=== PATIENT | female | born 1990 | race Two or more races ===

== ENCOUNTER 2018-02-16 02:17 | Emergency (ER) | payer SELFPAY ==
[~2018-02-16] VITALS: Ht 154.9 cm; Wt 81.2 kg
--- NOTE | 2018-02-16 02:34 | Emergency Room Report ---
History of Present Illness General Chief Complaint: Headache Source: Patient Present Illness HPI Is a 27-year-old female with no past medical history. She presents with chief point of neck pain and headache. Onset was about 2 hours ago. She was getting out of bed and felt pain in the back of her head. Radiate upward. Now felt stiff and burning sensation in that area. No nausea no vomiting. Pain is 7 out of 10. Denies any fever or chills. Denies any trauma. Usually do not get headache. No family history of subarachnoid bleed. No cough or congestion. Allergies: Coded Allergies: No Known Allergies (Unverified , 02/16/18) Patient History Past Medical History: none, see triage record, old chart reviewed Past Surgical History: none Pertinent Family History: none Social History: Denies: smoking Last Menstrual Period: Ended 2 days Now: No Immunizations: other Reviewed Nursing Documentation: PMH: Agreed; PSxH: Agreed Nursing Documentation-PMH Past Medical History: No Stated History Review of Systems Eye: Denies: eye pain, blurred vision ENT: Denies: ear pain, nose congestion, throat swelling Respiratory: Denies: cough, shortness of breath Cardiovascular: Denies: chest pain, palpitations Gastrointestinal: Denies: abdominal pain, diarrhea, nausea, vomiting Musculoskeletal: Denies: back pain, joint pain Skin: Denies: rash Neurological: Reports: headache; Denies: numbness Endocrine: Denies: increased thirst, increased urine Hematologic/Lymphatic: Denies: easy bruising All Other Systems: negative except mentioned in HPI Physical Exam Vital Signs Date Time Temp Pulse Resp B/P (MAP) Pulse Ox O2 Delivery O2 Flow Rate FiO2 02/16/18 02:22 98.1 111 20 160/92 96 Room Air 98.1 vitals with tachycardia and high blood pressure Sp02 EP Interpretation: reviewed, normal General Appearance: well appearing, no apparent distress, alert Head: normocephalic, atraumatic Eyes: bilateral eye PERRL, bilateral eye EOMI, bilateral eye other - funduscopic exam show sharp disc bilaterall ENT: hearing grossly normal, normal pharynx Neck: full range of motion, supple, no meningismus Respiratory: chest non-tender, lungs clear, normal breath sounds Cardiovascular #1: regular rate, rhythm, no murmur Gastrointestinal: normal bowel sounds, non tender, no mass, no organomegaly, no bruit, non-distended Musculoskeletal: back normal, gait/station normal, normal range of motion Psychiatric: mood/affect normal Skin: warm/dry Medical Decision Making Diagnostic Impression: Primary Impression: Headache Qualified Codes: R51 - Headache ER Course She presents with headache. She felt better now. No evidence of bleed or meningitis. No evidence of neoplastic process. I discussed the need for lumbar puncture to rule out subarachnoid bleed even though is negative. Said she felt better she how she does outpatient. If she continues to have pain will come back for lumbar puncture. She is otherwise stable. CT/MRI/US Diagnostic Results CT/MRI/US Diagnostic Results : Imaging Test Ordered: CT head Impression negative per radiologist Last Vital Signs Date Time Temp Pulse Resp B/P (MAP) Pulse Ox O2 Delivery O2 Flow Rate FiO2 02/16/18 02:22 98.1 111 20 160/92 96 Room Air 98.1 Status: improved Disposition: HOME, SELF-CARE Condition: Stable Scripts Ibuprofen* (MOTRIN*) 600 Mg Tablet 600 MG ORAL THREE TIMES A DAY, #30 TAB 0 Refills Prov: KAREN LINARES M.D. 02/16/18 Patient Instructions: General Headache Without Cause Additional Instructions: Follow-up with your DrNorris in one to 2 days if not better. Return if symptom doesn 't improve or worsen. KAREN LINARES M.D. Feb 16, 2018 02:34
[2018-02-16] MEDS ORDERED: Metoclopramide 10mg/2ml Inj IVP ONE (02:45)
[2018-02-16] MEDS ORDERED: Ketorolac 30mg Inj IV ONE (02:45)
[2018-02-16] MEDS ORDERED: DiphenhydrAMINE 50mg/ml Inj IVP ONE (02:45)
[2018-02-16 02:55] LABS: APPEARANCE,URINE CLEAR; BILIRUBIN, URINE NEGATIVE (NEGATIVE); COLOR,URINE PALE YELLOW; GLUCOSE, URINE (UA) NEGATIVE (NEGATIVE); KETONES,URINE 1+ (NEGATIVE); LEUKOCYTE ESTERASE ,URINE NEGATIVE (NEGATIVE); NITRITE,URINE NEGATIVE (NEGATIVE); PH,URINE 6 (4.5-8.0); PROTEIN,URINE 2+ (NEGATIVE); UROBILINOGEN,URINE NORMAL MG/DL (0.0-1.0)
[2018-02-16 02:56] LABS: ANION GAP 8 mmol/L (5-15); BLOOD UREA NITROGEN 19 mg/dL (7-18); CALCIUM 9.7 MG/DL (8.5-10.1); CARBON DIOXIDE 24 MMOL/L (21-32); CHLORIDE 100 MMOL/L (98-107); CREATININE 0.8 MG/DL (0.55-1.30); POTASSIUM 3.9 MMOL/L (3.5-5.1); SODIUM 132 MMOL/L (136-145)
[2018-02-16 03:00] LABS: BASOPHILS % (AUTO) 1.6 % (0.0-2.0); EOSINOPHILS % (AUTO) 1.4 % (0.0-3.0); HEMATOCRIT 44.6 % (37.0-47.0); LYMPHOCYTES % (AUTO) 50.7 % (20.0-45.0); MEAN CORPUSCULAR VOLUME 94 FL (80-99); MONOCYTES % (AUTO) 6.3 % (1.0-10.0); PLATELET COUNT 369 K/UL (150-450); RED BLOOD COUNT 4.74 M/UL (4.20-5.40); RED CELL DISTRIBUTION WIDTH 12.8 % (11.6-14.8); WHITE BLOOD COUNT 11.5 K/UL (4.8-10.8)
[2018-02-16] MEDS ORDERED: IBUPROFEN600 MG ORAL (04:36)
[2018-02-16 04:42] VITALS: BP 160/92
--- NOTE | 2018-02-16 09:03 | Diagnostic Imaging Report ---
Indications: Severe headache for one day Technique: Spiral acquisitions obtained through the brain. Angled axial and coronal 5 x 5 mm slices were reconstructed. Total dose length product 1453.5 mGycm. CTDI vol(s) 70.38 mGy. Dose reduction achieved using automated exposure control Comparison: None. Findings: No acute intracranial hemorrhage or edema, mass effect, nor midline shift. Normal moss-white differentiation. Normal-sized ventricles and extra-axial CSF spaces. Visualized orbits and sinuses are unremarkable. Intact calvarium Impression: Negative This agrees with the preliminary interpretation provided overnight by [facility]. The CT scanner at [facility] is accredited by the [employer] and the scans are performed using protocols designed to limit radiation exposure to as low as reasonably achievable to attain images of sufficient resolution adequate for diagnostic evaluation.
== END 2018-02-16 04:43 | disposition home or self-care (01) ==
LOC: EMR 03:17
DX: R51 Headache (principal)
CPT/HCPCS: 36415; 70450; 80048; 81001; 81025; 85025; 96374; 96375; 99285; J1200; J1885; J2765